=== PATIENT | male | born 1955 | race Caucasian/White ===

== ENCOUNTER 2022-10-17 21:45 | Emergency (ER) | payer MEDICARE, OTHER ==
[~2022-10-17] VITALS: Ht 182.9 cm; Wt 100.0 kg
[2022-10-17 22:00] LABS: BASOPHILS # (AUTO) 0.1 10^3/uL (0.0-0.1); BASOPHILS % (AUTO) 1 % (0-10); EOSINOPHILS # (AUTO) 0.3 10^3/uL (0.0-0.3); EOSINOPHILS % (AUTO) 3 % (0-10); HEMATOCRIT 43 % (40-54); HEMOGLOBIN 14.1 g/dL (13.3-17.7); LYMPHOCYTES # (AUTO) 1.7 10^3/uL (1.0-4.0); LYMPHOCYTES % (AUTO) 22 % (12-44); MEAN CORPUSCULAR HEMOGLOBIN 29 pg (25-34); MEAN CORPUSCULAR HGB CONC 33 g/dL (32-36); MEAN CORPUSCULAR VOLUME 88 fL (80-99); MEAN PLATELET VOLUME 10.8 fL (9.0-12.2); MONOCYTES # (AUTO) 0.7 10^3/uL (0.0-1.0); MONOCYTES % (AUTO) 9 % (0-12); NEUTROPHILS # (AUTO) 4.8 10^3/uL (1.8-7.8); NEUTROPHILS % (AUTO) 63 % (42-75); PLATELET COUNT 180 10^3/uL (130-400); WHITE BLOOD COUNT 7.7 10^3/uL (4.3-11.0)
--- NOTE | 2022-10-17 22:00 | ED Fall/Injury ---
General Stated Complaint: FALL Source: patient History of Present Illness Date Seen by Provider: Oct 17, 2022 Time Seen by Provider: 21:45 Initial Comments PT ARRIVES VIA EMS FROM LOCAL [facility], SITTING UP WITH CERVICAL COLLAR IN PLACE PT WAS WALKING INSIDE THE CASINO AND TRIPPED OVER SOMEONE ELSE'S CANE THAT WAS LAYING ON THE FLOOR HE FEEL FACE FIRST ONTO CARPETED FLOOR DID HAVE BRIEF LOSS OF CONSCIOUSNESS HE WAS ABLE TO GET UP AND WALK TO A NEARBY CHAIR. HE WAS WEARING GLASSES, AND NOSEPIECE OF GLASSES IS BROKEN OFF AND PT HAS A SKIN AVULSION TO BRIDE OF NOSE. NO VISION CHANGES NO NAUSEA/VOMITING NO HEADACHE NO DIZZINESS NO PARESTHESIAS OR MOTOR DEFICITS NO MOUTH / ORAL INJURY NO NECK OR BACK PAIN NO EXTREMITY PAIN NO CHEST PAIN OR ABDOMINAL PAIN NO SHORTNESS OF BREATH NO INCONTINENCE. LAST TETANUS WAS LESS THAN 5 YEARS AGO PT IS ON ASPIRIN AND PLAVIX HE HAS HTN, CAD, NIDDM, HYPERLIPIDEMIA HE DENIES ANY SMOKING, ALCOHOL OR DRUG USE PT LIVES IN [place], AND DROVE TO THE [facility] BY HIMSELF GERARDO. PCP: GOES TO [facility], AND ALSO TO [facility] IN [place] Allergies and Home Medications Allergies Coded Allergies: No Known Drug Allergies (Unverified , 10/17/22) Review of Systems Review of Systems Constitutional: no symptoms reported Eyes: No Symptoms Reported Ears, Nose, Mouth, Throat: see HPI Respiratory: no symptoms reported Cardiovascular: no symptoms reported Gastrointestinal: no symptoms reported Genitourinary: no symptoms reported Musculoskeletal: no symptoms reported Skin: see HPI Psychiatric/Neurological: See HPI Past [id number] Hx Patient Social History Tobacco Use?: No Substance use?: No Alcohol Use?: No Past Medical History Cardiac: Yes Atrial Fibrillation, Coronary Artery Disease, High Cholesterol, Hypertension Neurological: No Genitourinary: Yes Prostate Problems Gastrointestinal: Yes Gastroesophageal Reflux, Chronic Constipation Musculoskeletal: Yes Arthritis Endocrine: Yes Diabetes, Non-Insulin dep HEENT: Yes (GLASSES) Cancer: No Psychosocial: No Integumentary: No Blood Disorders: No Physical Exam Vital Signs Vital Signs - First Documented 10/17/22 21:45 Pulse 66 Resp 16 B/P (MAP) 170/80 (110) Pulse Ox 97 O2 Delivery Room Air Capillary Refill : Height, Weight, BMI Height: '" Weight: lbs. oz. kg; BMI Method: General Appearance: WD/WN, no apparent distress HEENT: PERRL/EOMI, TMs normal, pharynx normal, other (UPPER AND LOWER DENTURES INTACT. THERE IS A 1 X 1.5 CM SKIN AVULSION TO BRIDGE OF NOSE. ) Neck: other (IN CERVICAL COLLAR) Cardiovascular: regular rate, rhythm, no murmur Respiratory: chest non-tender, normal breath sounds, no respiratory distress, no accessory muscle use Gastrointestinal: normal bowel sounds, non tender, soft Back: normal inspection, no CVA tenderness, no vertebral tenderness Extremities: normal range of motion, non-tender, no pedal edema, no calf tenderness, normal capillary refill, other (VERY SUPERFICIAL ABRASION TO RIGHT KNEE. NON-TENDER. 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, no motor/sensory deficits, alert, normal mood/affect, oriented x 3 Skin: normal color, warm/dry, other ( ABOVE) Progress/Results/Core Measures Results/Orders Lab Results Laboratory Tests Test 10/17/22 21:55 Range/Units White Blood Count 7.7 4.3-11.0 10^3/uL Red Blood Count 4.82 4.30-5.52 10^6/uL Hemoglobin 14.1 13.3-17.7 g/dL Hematocrit 43 40-54 % Mean Corpuscular Volume 88 80-99 fL Mean Corpuscular Hemoglobin 29 25-34 pg Mean Corpuscular Hemoglobin Concent 33 32-36 g/dL Red Cell Distribution Width 12.8 10.0-14.5 % Platelet Count 180 130-400 10^3/uL Mean Platelet Volume 10.8 9.0-12.2 fL Immature Granulocyte % (Auto) 1 % Neutrophils (%) (Auto) 63 42-75 % Lymphocytes (%) (Auto) 22 12-44 % Monocytes (%) (Auto) 9 0-12 % Eosinophils (%) (Auto) 3 0-10 % Basophils (%) (Auto) 1 0-10 % Neutrophils # (Auto) 4.8 1.8-7.8 10^3/uL Lymphocytes # (Auto) 1.7 1.0-4.0 10^3/uL Monocytes # (Auto) 0.7 0.0-1.0 10^3/uL Eosinophils # (Auto) 0.3 0.0-0.3 10^3/uL Basophils # (Auto) 0.1 0.0-0.1 10^3/uL Immature Granulocyte # (Auto) 0.1 0.0-0.1 10^3/uL Prothrombin Time 13.2 12.2-14.7 SEC INR Comment 1.0 0.8-1.4 Activated Partial Thromboplast Time 28 24-35 SEC Sodium Level 138 135-145 MMOL/L Potassium Level 3.8 3.6-5.0 MMOL/L Chloride Level 105 98-107 MMOL/L Carbon Dioxide Level 21 21-32 MMOL/L Anion Gap 12 5-14 MMOL/L Blood Urea Nitrogen 16 7-18 MG/DL Creatinine 0.94 0.60-1.30 MG/DL Estimat Glomerular Filtration Rate 88 BUN/Creatinine Ratio 17 Glucose Level 311 H 70-105 MG/DL Calcium Level 9.6 8.5-10.1 MG/DL Corrected Calcium 9.2 8.5-10.1 MG/DL Total Bilirubin 0.8 0.1-1.0 MG/DL Aspartate Amino Transf (AST/SGOT) 19 5-34 U/L Alanine Aminotransferase (ALT/SGPT) 20 0-55 U/L Alkaline Phosphatase 73 40-136 U/L Total Protein 7.6 6.4-8.2 GM/DL Albumin 4.5 3.2-4.5 GM/DL Serum Alcohol < 10 <10 MG/DL My Orders Orders - JIM ESPAÑA DO Ed Iv/Invasive Line Start (10/17/22 21:53) Monitor-Rhythm Ecg Trace Only (10/17/22 21:53) Ct Head/Face/Cervical Wo (10/17/22 21:53) Chest 1 View, Ap/Pa Only (10/17/22 21:53) Alcohol (10/17/22 21:53) Cbc With Automated Diff (10/17/22 21:53) Comprehensive Metabolic Panel (10/17/22 21:53) Protime With Inr (10/17/22 21:53) Partial Thromboplastin Time (10/17/22 21:53) Rx-Mupirocin 2% Oint (Rx-Bactroban) (10/17/22 23:37) Acetaminophen Tablet (Tylenol Tablet) (10/17/22 23:45) Wound Dressing-Ed (10/17/22 23:37) Vital Signs/I&O 10/17/22 10/17/22 21:45 21:45 Pulse 66 Resp 16 B/P (MAP) 170/80 (110) Pulse Ox 97 O2 Delivery Room Air Room Air Departure Impression Primary Impression: Fall from standing Additional Impressions: Closed head injury with brief loss of consciousness SKIN AVULSION OF NOSE Neck strain Disposition: HOME, SELF-CARE Condition: Stable Departure-Patient Inst. Decision time for Depature: 23:39 Referrals: NO,LOCAL PHYSICIAN (PCP) Primary Care Physician Patient Instructions: Cervical Sprain ED, Concussion, Adult ED, Preventing Falls ED, SKIN AVULSION, Using Cold for Pain, Wound Care (DC) Add. Discharge Instructions: CLEAN WOUND TWICE A DAY WITH ANTIBACTERIAL SOAP AND WATER, APPLY ANTIBIOTIC OINTMENT AND FRESH DRESSING TWICE A DAY TYLENOL NEEDED FOR PAIN YOU MAY CONTINUE YOUR REGULAR MEDICATIONS PRESCRIBED ICE TO AREA AT 20 MINUTE INTERVALS FOLLOW UP WITH YOUR DR NEEDED, RETURN TO ER IF YOU HAVE WORSENING OF SYMPTOMS JIM ESPAÑA DO Oct 17, 2022 22:00
[2022-10-17 22:11] LABS: PROTHROMBIN TIME PATIENT 13.2 SEC (12.2-14.7)
[2022-10-17 22:23] LABS: ALANINE AMINOTRANSFERASE 20 U/L (0-55); ALBUMIN 4.5 GM/DL (3.2-4.5); ALKALINE PHOSPHATASE 73 U/L (40-136); BILIRUBIN,TOTAL 0.8 MG/DL (0.1-1.0); BUN/CREATININE RATIO 17; CALCIUM 9.6 MG/DL (8.5-10.1); CARBON DIOXIDE 21 MMOL/L (21-32); CHLORIDE 105 MMOL/L (98-107); CREATININE SERUM 0.94 MG/DL (0.60-1.30); GFR ESTIMATED 88; GLUCOSE 311 MG/DL (70-105); POTASSIUM 3.8 MMOL/L (3.6-5.0); SODIUM 138 MMOL/L (135-145); TOTAL PROTEIN 7.6 GM/DL (6.4-8.2)
[2022-10-17] MEDS ORDERED: RX-MUPIROCIN (BACTROBAN) 2% OINT 22 GM TUBE TOP STA (23:37)
[2022-10-17] MEDS ORDERED: ACETAMINOPHEN 500 MG TAB (TYLENOL) PO ONE (23:45)
[2022-10-17 23:58] VITALS: BP 145/84
--- NOTE | 2022-10-18 07:06 | Diagnostic Imaging Report ---
PROCEDURE: CT head, face, and cervical spine without contrast. TECHNIQUE: Multiple contiguous axial images were obtained through the head, neck, and facial bones without the use of intravenous contrast. Sagittal and coronal reformations through the cervical spine and facial bones were also performed. Auto Exposure Controls were utilized during the CT exam to meet ALARA standards for radiation dose reduction. INDICATION: Fall. Head and neck pain. Facial laceration. COMPARISON: None. FINDINGS: CT HEAD: The ventricles and cortical sulci are age-appropriate. There is no midline shift or mass-effect. No acute intracranial hemorrhage is seen. There is no CT evidence of acute territorial ischemia. No focal masses or collections are present. The calvarium is intact. CT FACE: No acute facial fractures are visualized. The mandible, zygomatic arches, and pterygoid plates are intact. The bilateral TMJ demonstrate normal articulation. No nasal bone fractures. The bony nasal septum is slightly deviated to the right without fracture. The paranasal sinuses and mastoid air cells are well pneumatized. The globes and orbits are symmetric and unremarkable. No evidence of orbital rim fracture. CT CERVICAL SPINE: No acute fracture or dislocation is seen in the cervical spine. No focal osseous lesions. Vertebral body heights are well-maintained. The craniocervical junction is well-maintained. Soft tissues of the neck are unremarkable. The included lung apices are clear. IMPRESSION: 1. No hemorrhage or focal intra-axial mass. No CT evidence of large acute territorial ischemia. 2. No acute fracture or dislocation in the cervical spine. 3. No acute facial fractures. 4. I agree with the overnight report. Dictated by: Dictated on workstation # [id number]
--- NOTE | 2022-10-18 07:30 | Diagnostic Imaging Report ---
INDICATION: Fall, pain EXAMINATION: Chest 10/17/2022 FINDINGS: The cardiomediastinal silhouette is unremarkable. The pulmonary vasculature is within normal limits. The lungs and pleural spaces are clear. IMPRESSION: 1. No evidence of an acute cardiopulmonary process. 2. Not mentioned in the body of the report, vague rounded density in the left lower chest adjacent to the heart border nonspecific possibly calcified but follow-up is recommended to assure stability. Dictated by: Dictated on workstation # [id number]
== END 2022-10-17 23:59 | disposition home or self-care (01) ==
LOC: ER 21:48
DX: S06.9X1A Unspecified intracranial injury with loss of consciousness of 30 minutes or less, initial encounter (principal); S16.1XXA Strain of muscle, fascia and tendon at neck level, initial encounter; S01.20XA Unspecified open wound of nose, initial encounter; S80.211A Abrasion, right knee, initial encounter; I25.10 Atherosclerotic heart disease of native coronary artery without angina pectoris; Z79.82 Long term (current) use of aspirin; Z79.02 Long term (current) use of antithrombotics/antiplatelets; Z28.310 Unvaccinated for COVID-19; W01.0XXA Fall on same level from slipping, tripping and stumbling without subsequent striking against object, initial encounter; Y92.59 Other trade areas as the place of occurrence of the external cause; Y93.01 Activity, walking, marching and hiking
CPT/HCPCS: 70450; 70486; 71045; 72125; 80053; 85025; 85610; 85730; 93041; 99284; G0480; 36415; 80320